=== PATIENT | female | born 1955 | race African-American/Black ===

== ENCOUNTER 2019-01-31 11:04 | Outpatient (CLI) | payer MEDICARE ==
--- NOTE | 2019-01-31 11:31 | RAD ---
XR Lumbar Spine 2 Or 3 View HISTORY: Radiculopathy lumbar region. Low back pain radiating down both legs FINDINGS: No acute fracture is seen. There is grade 1 anterolisthesis of L4 over L5.
--- NOTE | 2019-01-31 12:45 | RAD ---
CERVICAL SPINE THREE VIEWS: HISTORY: Cervicalgia. FINDINGS: Multilevel degenerative changes are present. There is loss of cervical lordosis with straightening of the cervical spine. No acute fracture, subluxation or bony destruction is seen. IMPRESSION: Cervical spondylosis. POS: [id number]
== END 2019-01-31 11:05 | disposition home or self-care (01) ==
LOC: BICRAD 11:04
PROVIDERS: ATTEND Pain Medicine Pain Medicine
DX: M54.16 Radiculopathy, lumbar region (principal); M54.2 Cervicalgia; M43.16 Spondylolisthesis, lumbar region; M47.812 Spondylosis without myelopathy or radiculopathy, cervical region
CPT/HCPCS: 72040; 72100